=== PATIENT | male | born 1950 | race Caucasian/White ===

== ENCOUNTER 2022-08-05 08:08 | Day surgery (SDC) | payer MEDICARE, BC, SELFPAY ==
[2022-08-05] MEDS: LACTATED RINGERS 1000 ML 1,000 ML 100 ML IV ×2 (07:05→13:07)
[2022-08-05 08:32] VITALS: BMI 33.3
[2022-08-05 08:57] VITALS: BP 105/71; PULSE 63; RESP 16; TEMP 36.7; O2SAT 99
[2022-08-05] MEDS: SODIUM CHLORIDE 0.9 % (FLUSH) 10 ML SYRINGE IVF (09:11)
--- NOTE | 2022-08-05 09:30 | CRLHL7_ITS ---
For Patients: As a result of the Cures Act, medical imaging exams and procedure reports are released immediately into your electronic medical record. You may view this report before your referring provider. If you have questions, please contact your health care provider. Indication: RIGHT 1ST MPJ FUSION ,HAMMERTOE REPAIR 2ND Technique: Two fluoroscopic images of the right forefoot. Fluoroscopic time 16.8 seconds. IMPRESSION: Fluoroscopic guidance for fusion across the 1st MTP joint and hammertoe correction of the 2nd toe. Dictated by James Nicolas MD @ 08/05/2022 12:30:28 PM (Electronically Signed)
[2022-08-05] MEDS: CEFAZOLIN 2 GM INJ IVP (10:13)
[2022-08-05] MEDS: BUPIVACAINE 0.5% 30 ML INJECTION (10:20)
[2022-08-05 12:22] VITALS: BP 115/58; PULSE 64; RESP 16; TEMP 36.2; O2SAT 98
--- NOTE | 2022-08-05 12:24 | W.ANESCHARGE ---
Anesthesia Charges Start Date/Time Anesthesia Start Date: 08/05/22 Anesthesia Start Time: 10:10 Stop Date/Time Anesthesia Stop Date: 08/05/22 Anesthesia Stop Time: 12:25 Summary Emergency: No Extremes of Age: Over 70-CPT 06874
--- NOTE | 2022-08-05 12:27 | W.ANESCHARGE ---
Anesthesia Charges Start Date/Time Anesthesia Start Date: 08/05/22 Anesthesia Start Time: 10:10 Stop Date/Time Anesthesia Stop Date: 08/05/22 Anesthesia Stop Time: 12:25 Summary Emergency: No Extremes of Age: Over 69-CPT 43915
[2022-08-05 12:30] VITALS: BP 100/80; PULSE 65; RESP 16; O2SAT 98
[2022-08-05 12:45] VITALS: BP 107/53; PULSE 63; RESP 16; O2SAT 97
[2022-08-05 13:00] VITALS: BP 109/62; PULSE 67; RESP 16; O2SAT 97
[2022-08-05 13:15] VITALS: BP 102/60; PULSE 66; RESP 16; O2SAT 94
--- NOTE | 2022-08-05 14:47 | P.GSOP_ITS ---
Operative Note Date of procedure: 08/05/22 Pre-op diagnosis: 1. Hallux valgus with bunion right foot 2. Hammertoe 2nd digit right foot Post-op diagnosis: 1. Hallux valgus with bunion right foot 2. Hammertoe 2nd digit right foot Type of Procedure: 1. First MPJ fusion right foot 2. Second digit hammertoe repair with FDL transfer right 3. Capsulotomy 2nd MPJ right Indications: Patient was seen in clinic for ongoing bunion and hammertoe issues patient is high risk for potential breakdown 2nd hammertoe due to diabetes. He has not responded to nonsurgical care and he is ready to pursue surgery. I reviewed the procedure, recovery, expectations and potential complications. This includes but is not limited to: Poor wound healing, infection, under correction, over correction, hardware failure, nerve injury, nonunion, malunion, delayed union, potential need for future surgery, deep venous thrombosis, pulmonary embolism and possible . All questions answered. Written consent obtained. Procedure Description: Procedures: 1. First MPJ fusion right foot 2. Second digit hammertoe repair with FDL transfer right 3. Capsulotomy 2nd MPJ right After discussing the risks and benefits of the procedure, the patient signed informed consent.? The operative site was marked and the patient was brought to the operating room and placed on the operating table in supine position.? Care was taken to pad the patient's pressure points.?? The patient was then given sedation by anesthesia. I injected 30 mL of 0.5% Marcaine plain into the right foot.?? The operative site was then prepped and draped in the usual sterile fashion.? A time-out was then performed. The right foot was exsanguinated and the ankle tourniquet inflated to 250 mm Hg. Dorsal incision made over the 1st metatarsophalangeal joint. The incision was carried down through skin subcutaneous tissues. Capsular incision was made in the capsular tissue reflected away from the 1st metatarsal head and proximal phalangeal base. Guide pin placed the 1st metatarsal head and a 20 mm Reamer used to remove the cartilage and subchondral bone. Rongeur was used to clean up the surrounding bony overhang. Guide pin was removed placed in the base of the proximal phalanx. The corresponding 20 mm Reamer was used to remove the cartilage and subchondral bone. Wound was irrigated normal sterile saline. Opposing fusion surfaces were then fenestrated with a K-wire. Simulated weight- bearing was performed and the great toe positioned appropriately and then temporarily fixated with a K-wire. C-arm confirmed position. Guidepin was placed from distal medial to proximal lateral across the fusion site. 3.0 mm cannulated headless screw was inserted using standard technique. Excellent compression across the fusion site. A dorsally based metatarsal fusion plate was applied. 3.0 mm locking screws x3 were placed distal and 3.0 mm locking s crews x2 were placed proximal. Additional 3.0 mm nonlocking screw was placed proximal. A rotary bur was used to remodel the 1st metatarsal head and proximal phalanx base on the medial aspect. Wound was thoroughly irrigated with sterile saline. Capsule was repaired with 3-0 Vicryl. Subcutaneous tissues reapproximated with 4-0 Monocryl. Skin closed with 4-0 Prolene. Linear incision was made over the right 2nd digit distal interphalangeal joint and proximal interphalangeal joint the 2nd toe with incision extending to the MPJ. At the level of the MPJ the extensor tendon and joint capsule released. The toe position improved somewhat but not entirely and still had elevation of the proximal phalanx. Transverse incisions were made over the PIPJ and DIPJ with the extensor tendon reflected proximally. Mediolateral collateral ligaments released. Using a sagittal saw the head of the proximal phalanx and middle phalanx were resected and the base of the middle phalanx and distal phalanx were resected. At the PIPJ level the flexor digitorum brevis tendon slips were protected and the flexor hallucis longus tendon identified. He was released as far distal as possible and then split into 2 equal halves and each clamped with hemostat and laid 1 medial 1 lateral. A guide pin was placed in the base of the middle phalanx driven through the middle phalanx and then through the distal phalanx. It was then retrogradely drilled into the proximal phalanx. Length was obtained. Small stab incision made the distal toe. 3.0 mm cannulated headless screw was then inserted using standard technique. Excellent compression across both the DIPJ and PIPJ fusion site. Excellent position of the screw. The FDL tendon strips were then brought dorsal and twisted around 1 another. We tensioned the tendon to pull the toe into appropriate alignment and then sutured the toes to portion of the 2 tendons together with 4-0 FiberWire. The repair held nicely. The extensor tendon at the PIPJ and DIPJ fusion sites was repaired with 4-0 Vicryl. Wound was thoroughly irrigated normal sterile saline. Subcutaneous tissues reapproximated 4-0 Monocryl and skin closed with 4-0 Prolene.? Sterile dressings were then applied. Tourniquet was released normal capillary fill time returned to all digits. ? The patient was then woken and transported to the recovery area in stable condition. The patient tolerated the procedure well. He is given both written and verbal postoperative instructions. He is weight-bearing to the heel in a Cam boot with crutch assistance. He is given oxycodone for pain. He will follow up in clinic in 2 days. He will start aspirin therapy tomorrow Findings: Complications: None apparent Implants: Arthrex 1st MPJ fusion plate 6 hole x1, 3.0 mm locking screws x5, 3.0 mm nonlocking screw x1, 3.0 mm headless screw x2. Anesthesia: MAC and local Surgeon: Deo Garcia DPM Estimated blood loss (mL): 10 Condition: stable Disposition: same day
== END 2022-08-05 13:40 | disposition home or self-care (01) ==
PROVIDERS: PCP Family Medicine; Visit Provider Podiatrist
PROC: (CPT 28740; principal; 2022-08-05 09:30)
PROC: (CPT 28285; 2022-08-05 09:30)
DX: M21.611 Bunion of right foot (principal); M20.11 Hallux valgus (acquired), right foot; M20.41 Other hammer toe(s) (acquired), right foot
CPT/HCPCS: 28750; 28285; 28308; 01480; 73620; 82962; 97116; 97161; 99100; A4580; C1713; J0690; J2250; J2370; J2704; J3010; J3490; J7120

== ENCOUNTER 2024-11-10 12:52 | Emergency (ER) | payer MEDICARE, SELFPAY ==
[2024-11-10 13:07] VITALS: BP 163/74; PULSE 57; RESP 18; TEMP 36.7; O2SAT 97
--- NOTE | 2024-11-10 13:25 | ED_ITS ---
HPI - General Adult General Chief complaint: Ear/Nose/Throat Problem Stated complaint: ear surgery on Friday - Triage sent here Time Seen by Provider: 11/10/24 12:56 History of Present Illness HPI narrative: [age] year white male several-day postop cochlear implant on the left. Alma sanchez wears a hearing aid on his right. Had the surgery done elsewhere. He called the triage nurse and they asked retic him to come to the ER as he has been nauseated had some dizziness. Reported to have a headache as well but that he denies that to me now. He is very hard of hearing. His explains most of his history. He denies any chest pain, breathing problem, neurologic complaints, fever. He has been taking 2 doses of dexamethasone and also started on Keflex postoperatively, he also was given hydrocodone but has not started that. Took no meds today as he was concerned about his situation. He feels he is able to walk without difficulty, he does not feel too dizzy right now. Has not had ability to take much for fluid or food just due to not feeling good. Related Data Home Medications ?Medication ?Instructions ?Recorded ?Confirmed aspirin 81 mg tablet,delayed 81 mg PO DAILY 08/01/22 08/05/22 release atorvastatin 40 mg tablet 40 mg PO QHS 08/01/22 08/05/22 chlorthalidone 25 mg tablet 25 mg PO DAILY 08/01/22 08/05/22 gabapentin 300 mg capsule 300 mg PO QHS 08/01/22 08/05/22 glimepiride 4 mg tablet (Amaryl) 8 mg PO DAILY 08/01/22 08/05/22 lisinopril 20 mg tablet 20 mg PO DAILY 08/01/22 08/05/22 metformin 1,000 mg tablet 1,000 mg PO BIDWMEAL 08/01/22 08/05/22 metoprolol tartrate 25 mg tablet 25 mg PO BID 08/01/22 08/05/22 nitroglycerin 0.4 mg sublingual 0.4 mg sublingual Q5M PRN chest 08/01/22 08/05/22 tablet (Nitrostat) pain omega 8-vlm-cst-fish oil 1,000 mg 1 cap PO DAILY 08/01/22 08/05/22 (120 mg-180 mg) capsule (Fish Oil) Allergies Allergy/AdvReac Type Severity Reaction Status Date / Time No Known Drug Allergies Allergy Verified 11/10/24 13:10 Review of Systems Status of ROS: Reports: 6 or more systems reviewed and unremarkable except as noted in History and below [facility] Medical History Controlled diabetes mellitus with hyperglycemia, without long-term current use of insulin ?E11.65 - Type 2 diabetes mellitus with hyperglycemia (ICD-10) Nuclear senile cataract of both eyes ?H25.13 - Age-related nuclear cataract, bilateral (ICD-10) Hyperopia of both eyes ?H52.03 - Hypermetropia, bilateral (ICD-10) Blepharitis of both eyes ?H01.003 - Unspecified blepharitis right eye, unspecified eyelid (ICD-10) ?H01.006 - Unspecified blepharitis left eye, unspecified eyelid (ICD-10) Other intervertebral disc displacement, lumbar region ?M51.26 - Other intervertebral disc displacement, lumbar region (ICD-10) Tinnitus, unspecified ear ?H93.19 - Tinnitus, unspecified ear (ICD-10) Sensorineural hearing loss, bilateral ?H90.3 - Sensorineural hearing loss, bilateral (ICD-10) Benign neoplasm of colon, unspecified ?D12.6 - Benign neoplasm of colon, unspecified (ICD-10) Essential (primary) hypertension ?I10 - Essential (primary) hypertension (ICD-10) Acquired hyperlipoproteinemia ?E78.5 - Hyperlipidemia, unspecified (ICD-10) Type 2 diabetes mellitus without complications ?E11.9 - Type 2 diabetes mellitus without complications (ICD-10) Surgical History H/O coronary artery bypass surgery ?Z95.1 - Presence of aortocoronary bypass graft (ICD-10) H/O aortic valve replacement ?Z95.2 - Presence of prosthetic heart valve (ICD-10) Social History Smoking Status: Never smoker How often do you have a drink containing alcohol: never How often do you have six or more drinks on one occasion: Never AUDIT-C Alcohol total score: 0 Non-prescribed substance use: denies use Caffeine: No service: No Exam Narrative: Exam Narrative: Objective: Patient's vital signs look unremarkable other than slightly elevated blood pressure He is alert orient x3, no distress, negative nystagmus, his postoperative wound looks like it is healing and noninfected. His extraocular movements are intact Neurologic in upper lower extremities unremarkable pulse regular heart rhythm regular heart murmur. Const: Vital Signs, click to edit/add: Vital Signs - 24 hr 11/10/24 13:07 Temperature 98.1 F Pulse Rate [Pulse Oximeter] 57 L Respiratory Rate 18 Blood Pressure [Ri ght Upper Arm] 163/74 H Pulse Oximetry 97 Oxygen Delivery Me thod Room Air Course Vital Signs Vital signs: Initial Vital Signs Temperature 98.1 F 11/10/24 13:07 Temperature Source Temporal Artery Scan 11/10/24 13:07 Pulse Rate 57 L 11/10/24 13:07 Respiratory Rate 18 11/10/24 13:07 Blood Pressure 163/74 H 11/10/24 13:07 Blood Pressure Mean 103 11/10/24 13:07 Blood Pressure Position Sitting 11/10/24 13:07 Pulse Oximetry 97 11/10/24 13:07 Oxygen Delivery Method Room Air 11/10/24 13:07 Vital Signs Temperature 98.1 F 11/10/24 13:07 Pulse Rate 57 L 11/10/24 13:07 Respiratory Rate 18 11/10/24 13:07 Blood Pressure 163/74 H 11/10/24 13:07 Pulse Oximetry 97 11/10/24 13:07 Oxygen Delivery Method Room Air 11/10/24 13:07 Temperature 98.1 F 11/10/24 13:07 Pulse Rate 57 L 11/10/24 13:07 Respiratory Rate 18 11/10/24 13:07 Blood Pressure 163/74 H 11/10/24 13:07 Pulse Oximetry 97 11/10/24 13:07 Oxygen Delivery Method Room Air 11/10/24 13:07 Medications Administered Medications: Discontinued Medications Generic Name Dose Route Start Last Admin Trade Name Freq PRN Reason Stop Dose Admin Sodium Chloride 1,000 mls @ 6,000 mls/hr 11/10/24 13:30 11/10/24 13:54 0.9 % Sodium Chloride 1000 Ml IV 11/10/24 13:39 6,000 mls/hr .Q10M DELIA Administration Lorazepam 1 mg 11/10/24 13:42 11/10/24 13:53 Lorazepam 1 Mg Tablet PO 11/10/24 13:43 1 mg ONCE ONE Administration Medical Decision Making MDM Narrative Medical decision making narrative: 74-year-old male's several days status post cochlear implant with some nausea dizziness. At this point think it be reasonable to check some labs on the patient, will give him IV fluid rehydration, some IV Ativan to help perhaps with his dizziness and nausea. Disposition pending lab findings in his clinical status. Addendum 2:43 p.m. patient feels better after fluid in the Ativan. His lab studies look reassuring including a negative troponin. I think he can be discharged home rest light activity, would recommend he continue his Keflex and dexamethasone as prescribed. Update his surgeon in the next couple of days. Follow up as indicated. Lab Data Labs: Lab Results 11/10/24 Range/Units 13:56 WBC 9.61 (4.50-11.00) K/uL RBC 4.73 (4.30-5.90) m/uL Hgb 14.2 (13.5-17.5) gm/dL Hct 41.2 (37.0-53.0) % MCV 87 (80-100) fL MCH 30 (26-34) pg MCHC 35 (32-36) gm/dL RDW Coeff of Alicia 12.4 (11.5-15.5) % Plt Count 157 (140-440) K/uL Neut % (Auto) 71.4 (42.0-72.0) % Lymph % (Auto) 21.6 (20-44) % Titus % (Auto) 6.0 (0.0-11.0) % Eos % (Auto) 0.7 (0.0-7.0) % Baso % (Auto) 0.2 (0.0-3.0) % Neut # (Auto) 6.85 (1.7-7.0) K/uL Lymph # (Auto) 2.08 (0.90-2.90) K/uL Titus # (Auto) 0.60 (0.00-0.90) K/UL Eos # (Auto) 0.07 (0.00-0.50) K/uL Baso # (Auto) 0.02 (0.00-0.30) K/uL Abs Immat Gran (auto) 0.01 (0.00-0.30) K/uL Imm/Tot Granulo (auto) 0.1 % Sodium 135 (135-149) mmol/L Potassium 4.1 (3.6-5.1) mmol/L Chloride 100 (96-114) mmol/L Carbon Dioxide 21 (20-32) mmol/L Anion Gap 14 (7-15) mEq/L BUN 31 H (7-30) mg/dL Creatinine 1.4 (0.5-1.5) mg/dL Estimated GFR 52 ml/min Glucose 196 H (60-115) mg/dL Calcium 9.6 (8.4-10.6) mg/dL POC Troponin I 0.00 L (0.01-0.04) ng/ml Discharge Plan Discharge Clinical Impression: Dizziness, Nausea, History of cochlear implant Patient Disposition: Home w/ Parent or Adult Condition: Improved Additional Instructions: Light activity, continue home medicines, recheck as needed. Activity Level: Light activity Discharge Diet: Regular Prescriptions: No Action aspirin 81 mg tablet,delayed release (DR/EC) 81 mg PO DAILY atorvastatin 40 mg tablet 40 mg PO QHS chlorthalidone 25 mg tablet 25 mg PO DAILY omega 4-orf-wmd-fish oil [Fish Oil] 1,000 mg (120 mg-180 mg) capsule 1 cap PO DAILY gabapentin 300 mg capsule 300 mg PO QHS glimepiride [Amaryl] 4 mg tablet 8 mg PO DAILY lisinopril 20 mg tablet 20 mg PO DAILY metformin 1,000 mg tablet 1,000 mg PO BIDWMEAL metoprolol tartrate 25 mg tablet 25 mg PO BID nitroglycerin [Nitrostat] 0.4 mg tablet, sublingual 0.4 mg sublingual Q5M PRN (Reason: chest pain) Rx Instructions: do not exceed 3 doses per episode Follow Up/Referrals: Terry Corbett MD [Primary Care Provider] - Stand Alone Forms: [employer] Info Instructions
[2024-11-10] MEDS: LORazepam 1 MG TABLET PO (13:53)
[2024-11-10] MEDS: 0.9 % SODIUM CHLORIDE 1000 ml 1,000 ML 6000 ML IV (13:54)
[2024-11-10 14:07] LABS: Basophils Absolute Auto 0.02 K/uL (0.00-0.30); Basophils Percent Auto 0.2 % (0.0-3.0); Eosinophils Absolute Auto 0.07 K/uL (0.00-0.50); Eosinophils Percent Auto 0.7 % (0.0-7.0); Hematocrit 41.2 % (37.0-53.0); Hemoglobin* 14.2 gm/dL (13.5-17.5); Immature Granulocytes Abs Auto 0.01 K/uL (0.00-0.30); Immature Granulocytes Pct Auto 0.1 %; Lymphocytes Absolute Auto 2.08 K/uL (0.90-2.90); Lymphocytes Percent Auto 21.6 % (20-44); Mean Corpuscular HGB Conc 35 gm/dL (32-36); Mean Corpuscular Hemoglobin 30 pg (26-34); Mean Corpuscular Volume 87 fL (80-100); Neutrophils Absolute Auto 6.85 K/uL (1.7-7.0); Neutrophils Percent Auto 71.4 % (42.0-72.0); Platelet Count* 157 K/uL (140-440); RDW Coefficient of Variation % 12.4 % (11.5-15.5); Red Blood Count 4.73 m/uL (4.30-5.90); White Blood Count* 9.61 K/uL (4.50-11.00)
[2024-11-10 14:25] LABS: Chloride* 100 mmol/L (96-114); Potassium* 4.1 mmol/L (3.6-5.1); Sodium* 135 mmol/L (135-149)
[2024-11-10 14:28] LABS: Anion Gap 14 mEq/L (7-15); Blood Urea Nitrogen* 31 mg/dL (7-30); Calcium* 9.6 mg/dL (8.4-10.6); Carbon Dioxide* 21 mmol/L (20-32); Creatinine* 1.4 mg/dL (0.5-1.5); Estimated Glomerular Filt Rate 52 ml/min; Glucose* 196 mg/dL (60-115)
[2024-11-10 14:32] LABS: Slide Review Reflex No
== END 2024-11-10 14:54 | disposition home or self-care (01) ==
PROVIDERS: Emergency Provider Family Medicine; PCP Family Medicine
DX: R42 Dizziness and giddiness (principal); R11.0 Nausea
CPT/HCPCS: 36415; 80048; 84484; 85025; 99283; 99285; A9270; J7030

== ENCOUNTER 2024-11-15 20:33 | Emergency (ER) | payer MEDICARE, BC, SELFPAY ==
--- OUTSIDE RECORDS SUMMARY | 2024-11-15 20:36 | XMS_ITS | Clinical Summary ---
Author Organization [employer] [facility] Address [address] [place] [address] Care Team Providers Care Vp Publisher Development Name Role Phone Terry Corbett MD Primary Care Provider + Deo Garcia DPM Unavailable Mary Jane Valentino Unavailable [phone] Allergies No known active allergies Medications FISH OIL 1,000 MG CAP 1 tablet daily 0 09/05 01/05 008 Active aspirin (ECOTRIN) 81 mg enteric coated tablet Take 1 tablet by mouth once daily with a meal. 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 1 Each 023 Active pen needle (BD Insulin Pen Needle UF) 31 gauge x 5/16 (disposable insulin pen needle)Indications:Type 2 diabetes mellitus with hyperglycemia, without long-term current use of insulin (HC) FOR ADMINISTERING INSULIN AT HOME 100 Each 3 024 Active insulin glargine, U-100, (Lantus Solostar U-100 Insulin) 100 unit/mL (3 mL) penIndications:Type 2 diabetes mellitus without complication, with long-term current use of insulin (HC) Inject 24 units subcutaneous before bedtime. 60 mL 3 024 Active gabapentin (NEURONTIN) 300 mg capsuleIndications:Lumb ar disc herniation with radiculopathy TAKE 1 CAPSULE BY MOUTH EVERY DAY AT BEDTIME FOR BACK PAIN 90 Capsule 3 024 Active metoprolol tartrate (LOPRESSOR) 25 mg tabletIndications:Coron vahid artery disease, unspecified vessel or lesion type, unspecified whether angina present, unspecified whether [place] or transplanted heart Take 1 Tablet (25 mg) by mouth two times daily. 180 Tablet 3 024 Active atorvastatin (LIPITOR) 40 mg tabletIndications:Pure hypercholesterolemia Take 1 Tablet (40 mg) by mouth at bedtime. 90 Tablet 3 024 Active nitroglycerin (NITROSTAT) 0.4 mg sublingual tabletIndications:S/P CABG x [address] Place 1 Tablet (0.4 mg) under the tongue every 5 minutes if needed for Chest Pain. 25 Tablet 4 024 Active metFORMIN (GLUCOPHAGE) 1,000 mg tabletIndications:Diabe marleni mellitus without complication (HC) TAKE 1 TABLET BY MOUTH TWICE DAILY WITH MEALS. 180 Tablet 2 Active Dexcom G6 Transmitter for continuous blood glucose monitor (CGM)Indications:Type 2 diabetes mellitus with hyperglycemia, without long-term current use of insulin (HC) To be used to read blood sugars, change every 90 days. 1 Each 025 Active Dexcom G6 Sensor for continuous blood glucose monitor (CGM)Indications:Type 2 diabetes mellitus with hyperglycemia, without long-term current use of insulin (HC) To be used to read blood sugars, change every 10 days. 9 Each 025 Active glimepiride 4 mg tabletIndications:Type 2 diabetes mellitus without complication, without long-term current use of insulin (HC) TAKE 2 TABLETS(8 MG) BY MOUTH EVERY DAY WITH A MEAL 180 Tablet 3 025 Active chlorthalidone 25 mg tabletIndications:Hyper tension TAKE 1 TABLET(25 MG) BY MOUTH DAILY 90 Tablet 3 025 Active valsartan 160 mg tabletIndications:HTN (hypertension) Take 1 Tablet (160 mg) by mouth once daily. 90 Tablet 3 025 Active HYDROcodone-acetaminoph en (5-325 mg/tablet)Indications:S ensorineural hearing loss, bilateral Take 1 Tablet by mouth 3 times daily if needed for Pain. Max acetaminophen dose: 4000 mg in 24 hrs. 10 Tablet 11/09/19 25 5:21 PM CDT 025 Active cephalexin 500 mg capsuleIndications:Sens orineural hearing loss, bilateral Take 1 Capsule (500 mg) by mouth four times daily for 10 days. 40 Capsule 11/09/19 25 5:21 PM CDT 025 2024 Active acetaminophen 325 mg tabletIndications:Senso rineural hearing loss, bilateral Take 2 Tablets (650 mg) by mouth four times daily. Max 4,000 mg total acetaminophen daily. 100 Tablet 11/09/19 25 5:21 PM CDT 025 Active ibuprofen 200 mg tabletIndications:Senso rineural hearing loss, bilateral Take 2 Tablets (400 mg) by mouth four times daily with meals and at bedtime. 100 Tablet 11/09/19 25 5:21 PM CDT 025 Active dexAMETHasone 4 mg tabletIndications:Senso rineural hearing loss, bilateral Take 1 tablet two days after surgery (Friday after surgery on Friday, or Friday after surgery on ), then take another tablet four days after surgery, then take another tablet six days after surgery. 3 Tablet 11/09/19 25 5:21 PM CDT 025 Active acetaminophen (TYLENOL ORAL) Take by mouth. Activ e IBUPROFEN ORAL Take by mouth. Active Active Problems Problem Noted Date Diagnosed Date Type 2 diabetes mellitus wit h diabetic cataract, with long-term current use of insulin 09/23/2023 Short-term memory loss 10/09/2022 Type 2 diabetes mellitus wit h hyperglycemia, without long-term current use of insulin 08/24/2019 S/P AVR (aortic valve replacement) 07/11/2016 Overview (07/11/2016): 07/11/16 s/p Aortic Valve replacement with a 21 mm Pani[place] Magna valve S/P CABG x 1 07/11/2016 Overview (07/11/2016): 07/11/16 s/p Coronary artery bypass graft X 1 with a graft from the left internal mammary artery to the left anterior descending Blepharitis of both eyes 09/05/2015 Hyperopia of both eyes with astigmatism and pres byopia 09/05/2015 Nuclear senile cataract of both eyes 09/05/2015 Lumbar disc herniation 06/08/2014 Overview (05/02/2016): ~ January 2016:L5-S1 TF epidural steroid injection by Dr. Tamez. ~ February,: was done and lidocaine effect was ok, then approximately 1 week of good, 75%, relief then benefit started to wear off. ~ April 2016: Left L2-L3 Interlaminar epidural steroid injection by Dr. Tamez. Sensorineural hearing loss, bilateral 07/23/2011 Subjective tinnitus 07/23/2011 Benign neoplasm of colon 09/22/2009 Overview (09/12/2021): Colonoscopy 09/2009 TA, repeat in 5 years Colonoscopy 09/2021 inflammatory polyp, repeat in 7 years Hypertension 08/23/2009 Type II diabetes mellitus 08/06/2007 Hyperlipidemia 08/06/2007 Resolved Problems Problem Noted Date Diagnosed Date Resolved Date Pseudopolyposis of colon wit hout complication, unspecified part of colon 09/10/2022 10/26/2024 ELINA 11/23/2003 AHI-35 12/22/2015 016 Aortic stenosis 10/19/2014 01/22/2017 Overview (06/24/2016): -Echocardiogram 06/07/2016 Severe aortic stenosis, mean gradient 40 mm Hg, maximum gradient 67 mm Hg, JURGEN 0.79 cm2 EF 60-65% [place]' lung 08/06/2007 01/22/2017 Overview (06/24/2016): 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 Sleep apnea 08/06/2007 01/22/2017 Encounters Date Type Department Care Team Description 11/15/2024 Travel 11/10/2024 Nurse Triage [facility] [address] [place] [address] Vasu Herrera MD Post-op; Headache 11/05/2024 10:14 AM CDT Anesthesia Event [address] [place] [address] Oscar Motley MD Perese, Deniz A, MD 11/05/2024 9:26 AM CDT - 11/05/2024 12:21 PM CDT Surgery [address] [address] Vasu Herrera MD LEFT INSERTION COCHLEAR IMPLANT 11/05/2024 7:42 AM CDT - 11/05/2024 2:32 PM CDT Hospital Encounter [address] [address] Vasu Herrera MD Sensorineural hearing loss, bilateral (Primary Dx) Discharge Disposition: Home Self Care 11/03/2024 Travel 10/26/2024 10:00 AM CDT Office Visit [facility] [address] [place] [address] Terry Corbett MD Preoperative Exam (11/05/24, cochlear implant, Dr. Herrera, [place]) 10/26/2024 Travel 10/24/2024 Travel 10/23/2024 Travel 10/20/2024 11:30 AM CDT Office Visit [facility] [address] [place] [address] Senia George AuD Hearing Aid (CI device selection) 10/20/2024 Travel 09/21/2024 10:30 AM CDT Office Visit [facility] [address] [place] [address] James Cortez MD Follow Up (Follow up yearly visit- Echo 09/14/24 ) 09/21/2024 Travel 09/19/2024 Refill [facility] [address] [place] [address] Terry Corbett MD Refill Request (Lisinopril, Glimepiride, Chlorthalidone) 09/14/2024 11:00 AM CDT Ancillary Procedure [facility] [address] [place] [address] 09/14/2024 10:45 AM CDT Orders Only [facility] [address] [place] [address] Lab, [facility] 09/14/2024 Travel 09/10/2024 Travel 08/31/2024 Telephone [place] [id number] [place] [address] James Cortez MD Lab (Lab orders needed) from Last 3 Months Immunizations Immunization Administration Dates Next Due Amb Influenza, Inactivated A IIV4 (Age 65+ Years) Preserv Free 04/06/2020 COVID-19 vaccine (Moderna 50mcg/0.5mL) 12YO+ BIVALENT PF, MDV 04/16/2022 COVID-19 vaccine (Pfizer-Bio NTech 30mcg/0.3mL) PF, MDV 09/26/2020,09/05/2020 Influenza A (H1N1), Inactivated 08/30/2009 Influenza A (H1N1), Inactiva everett (Age >=3 Years) 08/30/2009 Influenza Virus, Unspecified 07/14/2023,04/16/20 22 Influenza, High-dose Inactivated 05/18/2024,12/01/2016,07/12/2014 Influenza, High-dose Quadriv alent Inactivated 03/12/2021 Influenza, IIV3 (Age 6-35 mos) 03/21/2010,2009 Influenza, IIV3 (Age >=3 years) 04/07/20 13,07/11/2011,03/21/2010,2009 Influenza, Inactivated AIIV4 (Age 65+ Years) Preserv Free 07/14/2023,04/16/2022 Influenza, Inactivated IIV3 (Age 65+ Years) Preserv Free 08/24/2019,06/02/2018 Pneumococcal Conj 20-valent (Prevnar 20) 05/09/2022 Pneumococcal Poly,23-Valent (Pneumovax) 08/30/2009 Pneumococcal conj 13-Valent (Prevnar 13) 06/12/2016 Td (Age >=7 Years) 11/18/2003 Tdap 08/30/2009 Zoster (Shingrix-RZV, recombinant) 05/24/2021, Family History Medical History Relation Name Comments Heart attack Father of presume d [place] at age 60 Dementia Mother Rheumatic fever Mother with associa everett heart disease Genetic Other Dad and Mom- he art disease Blood Disease Sister DVT Relation Name Status Comments Father Mother Other Sister Social History Tobacco Use Types Packs/Day Years Used Date Smoking Tobacco: Never Smokeless Tobacco: Never Tobacco Cessation:Counseling Given: Yes Alcohol Use Standard Drinks/Week Comments No 0 (1 standard drink = 0.6 oz pur e alcohol) PHQ-2 Answer Date Recorded PHQ-2 TOTAL SCORE 0 12/24/2023 Social Connections Answer Date Recorded Do you often feel lonely or isolated from those around you? 0 12/24/2023 Financial Resource Strain Answer Date R ecorded Difficulty of Paying Living Expenses 3 12/24/2023 Difficulty of Paying Living Expenses Not on file 12/24/2023 Food Insecurity Answer Date Recorded Do you worry your food will run out before you are able to buy more? 1 12/24/2023 Transportation Needs Answer Date Record ed Does lack of transportation keep you from medica l appointments? 1 12/24/2023 Does lack of transportation keep you from work, meetings or getting things that you need? 1 12/24/2023 Housing Stability Answer Date Recorded What is your housing situation today? 1 12/24/2023 Utilities Answer Date Recorded Do you have trouble paying f or utilities (for example, heat, electricity, water, phone)? 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 Not on file Not on file Obstetrics History Last Filed Vital Signs Vital Sign Reading Time Taken Comments Blood Pressure 122/58 11/05/2024 2:10 PM CDT Pulse 72 11/05/2024 2:10 PM CDT Temperature 36.4 C (97.5 F) 11/05/2024 1:20 PM CDT Respiratory Rate 16 11/05/2024 2:10 PM CDT Oxygen Saturation 93% 11/05/2024 2:10 PM CDT Inhaled Oxygen Concentration - - Weight 98 kg (216 lb) 11/05/2024 7:59 AM CDT Height 172.7 cm (5' 8) 11/05/2024 7:59 AM CDT Body Mass Index 32.84 11/05/2024 7:59 AM CDT Plan of Treatment Upcoming Encounters Date Type Department Care Team (Late st Contact Info) Description 11/16/2024 10:00 AM CDT Office Visit [facility] [id number] [place] [phone] Jodie Scales PA [address] [place] [address] 12/03/2024 10:00 AM CDT Office Visit [facility] [address] [place] [address] [phone] Linda Haines, AuD [address] [place] [address] 12/03/2024 10:30 AM CDT Office Visit [facility] [address] [place] [phone] Linda Haines, AuD [address] [place] [address] 12/23/2024 9:35 AM CDT Office Visit [facility] [address] [place] [address] VoTerry gustafson MD [address] [place] [address] Health Maintenance Due Date Last Done Comments Hepatitis C screening for ag e 18-79 1967 Tetanus booster 08/30/2019 08/30/2009, 11/18/2003 RSV vaccine for adults or (1 - 1-dose 75+ series) 01/19/2024 COVID-19 vaccine series (2023- season) 2024 05/18/2024, 07/14/2023, 04/16/2022, Additional history exists Depression screening for age 12+ 12/23/2024 12/24/2023, 10/09/2022, 11/19/2021, Additional history exists Medicare Wellness for age 65+ 12/24/2024 12/24/2023, 10/09/2022 BMI (ht and wt on same day) for age 18+ 10/26/2025 10/26/2024, 06/24/2024, 03/25/2024, Additional history exists Colonoscopy through age 75 09/11/202809/11, 09/11/2021, 09/11/2021, Additional history exists Lipids for age 45-75 09/14/2029 09/14/2024, 09/23/2023, 05/09/2022, Additional history exists Tdap Completed 08/30/2009 Zoster (shingles) series for age 50+ Completed 05/24/2021, 03/12/2021 Pneumococcal series for age 50+ Completed 05/09/2022, 06/12/2016, 08/30/2009 Influenza Vaccine Completed 05/18/2024, , 07/14/2023, Additional history exists Medical Devices Implanted Type Area Attendant Coin Operated Laundry Device Identifier Shelf Expiration Date Model / Serial / Lot Anw Hh [id number] Implanted:Qty: 1 on 07/11/2016 by Jaguar Hendrix MD at [facility] Explanted:at [facility] (Quantity not on file) N/A: Aortic Valve [employer]One 11/01/2019 [id number] / [id number] / Elctrd Cochlear Nucleus Plus Profile W/Slim Modiolar [id number] - [id number] Implanted:Qty: 1 on 11/05/2024 by Vasu Herrera MD at Left: [employer] 06/18/2026 [id number] / [id number] / Procedures Procedure Name Priority Date/Time Associated Diagnosis Comments GLUCOSE METER Timed 11/05/2024 12:36 PM CDT SUPRAGLOTTIC-LMA Routine 11/05/2024 10:38 AM CDT INSERTION COCHLEAR IMPLANT Tier 4 11/05/2024 9:54 AM CDT Sensorineural hearing loss (SNHL) of both ears Case Notes 150 MIN TFCochlear AmericasMICROSCOPE10/21: Order rec'd from office and submitted for quote. [facility]10/22: Externals ordered to be delivered to clinic. [facility] Special Needs HT 5'8 WT 97.8kg, BMI 32HOH, DM with CGM, GLUCOSE METER Timed 11/05/2024 8:02 AM CDT SCAN-CARDIAC STRIP 11/05/2024 12:00 AM CDT CBC WITH AUTO DIFFERENTIAL Routine 10/26/2024 11:11 AM CDT Pre-op exam BASIC METABOLIC PANEL Routine 10/26/2024 11:11 AM CDT Hypertension ECHO TTE COMPLETE W CONTRAST Routine 09/14/2024 11:44 AM CDT S/P AVR (aortic valve replacement) LIPID PANEL W REFLEX MEASURED LDL Routine 09/14/2024 10:40 AM CDT Hyperlipidemia, unspecified hyperlipidemia type BASIC METABOLIC PANEL Routine 09/14/2024 10:40 AM CDT Hypertension COLONOSCOPY SCREENING Routine 09/11/2021 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 GLUCOSE METER 185(H) 65 - 100 mg/dL 11/05/2024 12:41 PM CDT [facility] Blood BLOOD SPECIMEN / Unknown 11/05/2024 12:36 PM CDT 11/05/2024 12:41 PM CDT us Vasu Herrera MD CHEMISTRY Final Resul t [facility] [place] [address] [id number] [address] [place] [address] * HCHG MASK PR5 (11/05/2024 10:38 AM CDT) Narrative James Hood LINE HELPER - 11/05/2024 10:38 AM CDT James Hood CRNA 11/05/2024 10:39 AM Procedure: Supraglottic Patient location during procedure: OR Supraglottic Airway Properties Mask Ventilation: not attempted Type: unique Tube Size: 5 Insertion Attempts: 1 Placement Verification: auscultation and CO2 detection Assessment Assessment: atraumatic and dentition unchanged us Oscar Motley MD ANESTHESIA PX NOTE ORDERA BLES Final Result * SCAN-CARDIAC STRIP (11/05/2024 12:00 AM CDT) Narrative 11/05/2024 12:00 AM CDT Ordered by an unspecified provider. us Other Clinical Staff OTHER Final Resul t * CBC AND DIFFERENTIAL (10/26/2024 11:11 AM CDT) WHITE BLOOD CELL COUNT 7.4 3.8 - 10.8 Thousand/u L [facility] RED BLOOD CELL COUNT 4.46 4.20 - 5.80 Million/uL [facility] HEMOGLOBIN 13.4 13.2 - 17.1 g/dL [facility] HEMATOCRIT 40.5 38.5 - 50.0 % [facility] MCV 90.8 80.0 - 100.0 fL [facility] MCH 30.0 27.0 - 33.0 pg [facility] MCHC 33.1 32.0 - 36.0 g/dL [facility] Comment: For adults, a slight decrease in the calculated MCHC value (in the range of 30 to 32 g/dL) is most likely not clinically significant; however, it should be interpreted with caution in correlation with other red cell parameters and the patient's clinical condition. RDW 12.4 11.0 - 15.0 % [facility] PLATELET COUNT 186 140 - 400 Thousand/u L [facility] MPV 12.1 7.5 - 12.5 fL [facility] ABSOLUTE NEUTROPHILS 4,196 1,500 - 7,800 cells/uL [facility] ABSOLUTE LYMPHOCYTES 2,227 850 - 3,900 cells/uL [facility] ABSOLUTE MONOCYTES 540 200 - 950 cells/uL [facility] ABSOLUTE EOSINOPHILS 400 15 - 500 cells/uL [facility] ABSOLUTE BASOPHILS 37 0 - 200 cells/uL [facility] NEUTROPHILS 56.7 % [facility] LYMPHOCYTES 30.1 % [facility] MONOCYTES 7.3 % [facility] EOSINOPHILS 5.4 % [facility] BASOPHILS 0.5 % [facility] Blood BLOOD SPECIMEN / Unknown 10/26/2024 11:11 AM CDT 10/26/2024 11:11 AM CDT Terry Corbett MD HEMATOLOGY Final Re sult [facility] [address] [place] [address], [facility] [address] [place] [address] * (ABNORMAL) BASIC METABOLIC PANEL (10/26/2024 11:11 AM CDT) Only the most recent of2 resultswithin the time period is included. GLUCOSE 215(H) 65 - 99 mg/dL [facility] Comment: Fasting reference interval For someone without known diabetes, a glucose value >125 mg/dL indicates that they may have diabetes and this should be confirmed with a follow-up test. UREA NITROGEN (BUN) 43(H) 7 - 25 mg/dL [facility] CREATININE 2.06(H) 0.70 - 1.28 mg/dL [facility] EGFR 33(L) > OR = 60 mL/min/1.7 3m2 [facility] BUN/CREATININE RATIO 21 6 - 22 (calc) [facility] SODIUM 140 135 - 146 mmol/L [facility] POTASSIUM 5.4(H) 3.5 - 5.3 mmol/L [facility] CHLORIDE 107 98 - 110 mmol/L [facility] CARBON DIOXIDE 28 20 - 32 mmol/L [facility] ELECTROLYTE BALANCE 5(L) 7 - 17 mmol/L (calc) [facility] CALCIUM 9.4 8.6 - 10.3 mg/dL [facility] Blood BLOOD SPECIMEN / Unknown 10/26/2024 11:11 AM CDT 10/26/2024 11:11 AM CDT us Terry Corbett MD CHEMISTRY Final Re sult [facility] [address] [place] [address], [facility] [address] [place] [address] * ECHO TTE COMPLETE W CONTRAST (09/14/2024 11:44 AM CDT) AORTIC VALVE MEAN PG 16 mmHg EJECTION FRACTION 64 % LVEDD 4.0 cm EJECTION FRACTION 60 - 65% Anatomical Region Laterality Modality Ultrasound 09/14/2024 11:1 1 AM CDT Narrative 09/14/2024 12:45 PM CDT ECHOCARDIOGRAM FRANCISCO KAUFMAN : 1950 74 years Study Date: 09/14/2024 11:11:19 AM Gender: M BP: 110/54 mmHg Height: 173.00 cm BSA: 2.11 m Weight: 98.00 kg Tech: [facility] Referring MD: BLACK LUCIA Site: [facility] Reading Location: Mobile-OP Patient Location: Outpatient. Procedure: 2D w/ Contrast, Color Doppler and Spectral Doppler. Indication for study: S/P AVR (aortic valve replacement) Cardiac Rhythm: Regular.Study quality: Fair. Final Impressions: 1. Normal LV size, moderately increased wall thickness, normal global systolic function with an estimated EF of 60 - 65%. 2. Right ventricular cavity size is normal, global systolic RV function is mildly reduced. 3. Severely enlarged left atrium. 4. The aortic valve is a normal functioning 21 mm [employer] Magna, no stenosis and trivial regurgitation. The aortic valve peak velocity is 2.7 m/s, the peak gradient is 29 mmHg, and the mean gradient is 16 mmHg. The aortic valve area is 1.63 cm with a dimensionless index of 0.53. The stroke volume index is 42.2 ml/m . 5. Severe MAC present with calcified leaflets with signficantly reduced motion. The mean gradient only measured 5-6mmHg @ 62 bpm but suspect that mitral stenosis may be underestimated. Recomennd BIRDIE to further evaluate. Trace mitral regurgitation. 6. Echo contrast was administered to enhance visualization of all left ventricular segments. Chamber Sizes and Function Normal left ventricular size, moderately increased wall thickness, normal global systolic function with an estimated EF of 60 - 65%. No resting regional wall motion abnormality visualized. Left atrial size is severely enlarged. Right ventricular cavity size is normal, global systolic RV function is mildly reduced. The right atrium is normal. Right atrial volume index is 17 ml/m . Right atrial area is 12 cm . The pulmonary artery is of normal size and origin. The sinus of Valsalva is normal sized. The ascending aorta is normal sized. Valves, RV Pressures and Diastolic Function The aortic valve is a normal functioning 21 mm [employer] Per[employer] Magna, no stenosis and trivial regurgitation. The mitral valve is sclerotic, trace mitral regurgitation. Severe mitral annular calcification is present. Indeterminate pattern of LV diastolic filling. The tricuspid valve is normal in structure and trace tricuspid regurgitation. The pulmonic valve is normal. No pulmonary regurgitation. Masses, Effusion, Shunts There is no pericardial effusion. The inferior vena cava is normal sized, respiratory size variation greater than 50%. No left to right shunting was detected by limited color flow Doppler interrogation of the interatrial septum. MEASUREMENTS AND CALCULATIONS 2-D Measurements and LV Function: LVID (d) 4.0 cm LV FS% (2D) 27 % LVID (s) 2.9 cm LVOT diameter 2.0 cm IVS (d) 1.6 cm HR 63 bpm LVPW (d) 1.6 cm LA Vol index 54 ml/m2 Ao Sinus 2.6 cm RA Vol index 17 ml/m2 Ao Sinus ULN 4.2 cm * RA area 12 cm Asc Ao 3.6 cm RV Basal Diam 3.6 cm Asc Ao ULN 4.4 cm * LA 5.4 cm * Input BSA outside of range, reported values correspond to BSA = 2.1 Diastology: Mitral Tissue Doppler Pulmonary veins E Peak 1.4 m/s e', Septum 0.04 m/s Pulm s 59.6 cm/s A Peak 1.7 m/s e', Lateral 0.09 m/s Pulm d 35.4 cm/s E/A 0.9 E/e' Average 22.31 Pulm s/d ratio 1.68 DT 354 msec Aortic Valve: Vmax 2.7 m/s JURGEN (V) 1.55 cm VTI 0.55 m JURGEN (I) 1.63 cm LVOT V max 1.3 m/s Max PG 29 mmHg LVOT VTI 0.29 m Mean PG 16 mmHg SV 89 ml Dim Index 0.53 SV index 42 ml/m CO 5.6 l/min CI 2.7 l/min/m Mitral Valve: MVA 2.1 cm MV P 1/2 103 msec MV Mean G 5 mmHg MV VTI 0.57 m Tricuspid Valve and estimated PA pressures: TAPSE 1.3 cm Pulmonic Valve: PV AT 88 msec Contrast documentation: 2 ml diluted Definity, [facility]# [id number] was administered peripherally to enhance visualization of all left ventricular segments. . This study was interpreted by an [facility] accredited facility. Final (Updated) Procedure Note Esdras Zamorano MD - 09/17/2024 ECHOCARDIOGRAM FRANCISCO KAUFMAN : 1950 74 years Study Date: 09/14/2024 11:11:19 AM Gender: M BP: 110/54 mmHg Height: 173.00 cm BSA: 2.11 m Weight: 98.00 kg Tech: [facility] Referring MD: BLACK LUCIA Site: [facility] Reading Location: Mobile-OP Patient Location: Outpatient. Procedure: 2D w/ Contrast, Color Doppler and Spectral Doppler. Indication for study: S/P AVR (aortic valve replacement) Cardiac Rhythm: Regular.Study quality: Fair. Final Impressions: 1. Normal LV size, moderately increased wall thickness, normal globalsystolic function with an estimated EF of 60 - 65%. 2. Right ventricular cavity size is normal, global systolic RV functionis mildly reduced. 3. Severely enlarged left atrium. 4. The aortic valve is a normal functioning 21 mm [place] [employer], no stenosis and trivial regurgitation. The aortic valvepeak velocity is 2.7 m/s, the peak gradient is 29 mmHg, and the meangradient is 16 mmHg. The aortic valve area is 1.63 cm with adimensionless index of 0.53. The stroke volume index is 42.2 ml/m . 5. Severe MAC present with calcified leaflets with signficantly reducedmotion. The mean gradient only measured 5-6mmHg @ 62 bpm but suspect thatmitral stenosis may be underestimated. Recomennd BIRDIE to further evaluate.Trace mitral regurgitation. 6. Echo contrast was administered to enhance visualization of all leftventricular segments. Chamber Sizes and Function Normal left ventricular size, moderately increased wall thickness, normalglobal systolic function with an estimated EF of 60 - 65%. No restingregional wall motion abnormality visualized. Left atrial size is severelyenlarged. Right ventricular cavity size is normal, global systolic RVfunction is mildly reduced. The right atrium is normal. Right atrialvolume index is 17 ml/m . Right atrial area is 12 cm . The pulmonaryartery is of normal size and origin. The sinus of Valsalva is normalsized. The ascending aorta is normal sized. Valves, RV Pressures and Diastolic Function The aortic valve is a normal functioning 21 mm [employer], no stenosis and trivial regurgitation. The mitral valveis sclerotic, trace mitral regurgitation. Severe mitral annularcalcification is present. Indeterminate pattern of LV diastolic filling.The tricuspid valve is normal in structure and trace tricuspidregurgitation. The pulmonic valve is normal. No pulmonary regurgitation. Masses, Effusion, Shunts There is no pericardial effusion. The inferior vena cava is normal sized,respiratory size variation greater than 50%. No left to right shunting wasdetected by limited color flow Doppler interrogation of the interatrialseptum. MEASUREMENTS AND CALCULATIONS 2-D Measurements and LV Function: LVID (d) 4.0 cm LV FS% (2D) 27% LVID (s) 2.9 cm LVOT diameter2.0 cm IVS (d) 1.6 cm HR 63bpm LVPW (d) 1.6 cm LA Vol index 54ml/m2 Ao Sinus 2.6 cm RA Vol index 17ml/m2 Ao Sinus ULN 4.2 cm * RA area 12cm Asc Ao 3.6 cm RV Basal Diam3.6 cm Asc Ao ULN 4.4 cm * LA 5.4 cm * Input BSA outside of range, reported values correspond to BSA = 2.1 Diastology: Mitral Tissue Doppler Pulmonary veins E Peak 1.4 m/s e', Septum 0.04 m/s Pulm s 59.6 cm/s A Peak 1.7 m/s e', Lateral 0.09 m/s Pulm d 35.4 cm/s E/A 0.9 E/e' Average 22.31 Pulm s/d ratio 1.68 DT 354 msec Aortic Valve: Vmax 2.7 m/s JURGEN (V) 1.55 cm VTI 0.55 m JURGEN (I) 1.63 cm LVOT V max 1.3 m/s Max PG 29 mmHg LVOT VTI 0.29 m Mean PG 16 mmHg SV 89 ml Dim Index 0.53 SV index 42 ml/m CO 5.6 l/min CI 2.7 l/min/m Mitral Valve: MVA 2.1 cm MV P 1/2 103 msec MV Mean G 5 mmHg MV VTI 0.57 m Tricuspid Valve and estimated PA pressures: TAPSE 1.3 cm Pulmonic Valve: PV AT 88 msec Contrast documentation: 2 ml diluted Definity, [facility]# [id number] wasadministered peripherally to enhance visualization of all left ventricularsegments. . This study was interpreted by an [facility] accredited facility. Final (Updated) us Black Lucia MD, PhD ECHO ORD Khoi everett Result - Final * (ABNORMAL) LIPID PANEL W REFLEX MEASURED LDL (09/14/2024 10:40 AM CDT) CHOLESTEROL, TOTAL 129 <200 mg/dL [facility] HDL CHOLESTEROL 29(L) > OR = 40 mg/dL [facility] TRIGLYCERIDES 145 <150 mg/dL [facility] LDL-CHOLESTEROL 75 mg/dL (calc) [facility] Comment: Reference range: <100 Desirable range <100 mg/dL for primary prevention; <70 mg/dL for patients with CHD or diabetic patients with > or = 2 CHD risk factors. LDL-C is now calculated using the Naveed-Frausto calculation, which is a validated novel method providing better accuracy than the Friedewald equation in the estimation of LDL-C. Naveed SS et al. RUI. 2013;310(19): 6254-0494 (http://education.[employer]/faq/DJZ737) CHOL/HDLC RATIO 4.4 <5.0 (calc) [facility] NON HDL CHOLESTEROL 100 <130 mg/dL (calc) [facility] Comment: For patients with diabetes plus 1 major ASCVD risk factor, treating to a non-HDL-C goal of <100 mg/dL (LDL-C of <70 mg/dL) is considered a therapeutic option. Blood BLOOD SPECIMEN / Unknown 09/14/2024 10:40 AM CDT 09/14/2024 10:40 AM CDT James Cortez MD CHEMISTRY Final Result [facility] [address] [place] [address], 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) 09/11/2021 9:18 AM CARPET SEWING MACHINE OPERATOR Narrative Transcriptions Naveed Patterson MD - 09/11/2021 10:32 AM CST Patient Name: Francisco Kaufman Procedure Date: 09/11/2021 Gender: Male Date of : 1950 Admit Type: Outpatient Procedure: Colonoscopy Proceduralist: Naveed Patterson MD , Ange Mcneil RN(Nurse) Referring MD: Terry Corbett Indications/Pre-Op Diagnosis: High risk colon cancer surveillance:Personal history of adenoma less than 10 mm in size, Last colonoscopy: September 2009 Medications: Fentanyl 100 micrograms IV, Midazolam 2 mgIV, The level of sedation administered wasmoderate Procedure Description: The patient had risks, benefits and alternatives explained to andgave informed consent. The patient had a stable cardiopulmonary status and judged an adequate candidate for conscious sedation. The [id number] was passed through the anus and advanced tothe cecum, identified by appendiceal orifice and ileocecal valve. The colonoscopy was performed without difficulty. The patient toleratedthe procedure well. The quality of the bowel preparation was good. The ileocecal valve, appendiceal orifice, and rectum were photographed. Complications: No immediate complications. Estimated Blood Loss & Specimen: Estimated blood loss: none. Specimen collected - Yes and sent to Laboratory Findings: The perianal and digital rectal examinations were normal. A 4 mm polyp was found in the sigmoid colon. The polyp was sessile.The polyp was removed with a cold snare. Resection and retrieval were complete. Scattered small-mouthed diverticula were found in the sigmoidcolon. The exam was otherwise without abnormality on direct and retroflexion views. Impressions/Post-Op Diagnosis: - One 4 mm polyp in the sigmoid colon, removed with a cold snare. Resected and retrieved. - Diverticulosis in the sigmoid colon. - The examination was otherwise normal on direct and retroflexionviews. Recommendation: - Patient has a contact number available for emergencies. The signsand symptoms of potential delayed complications were discussed with the patient. Return to normal activities tomorrow. Written discharge instructions were provided to the patient. - Resume previous diet. - Continue present medications. - Await pathology results. - Repeat colonoscopy is recommended for surveillance. The colonoscopy date will be determined after pathology results from today's exambecome available for review. Moderate Sedation: Moderate (conscious) sedation was administered by the endoscopy nurse and supervised by the endoscopist. The following parameters were monitored: oxygen saturation, heart rate, respiratory rate, blood pressure, adequacy of pulmonary ventilation and reponse to care. Please refer to the patient's medical record flowsheets and nursing notes for moderate sedation details. Total physician intraservice time was 26 minutes. Naveed Patterson MD 09/11/2021 10:32:31 AM This report has been signed electronically. Note Initiated On: 09/11/2021 9:18 AM Procedure Code(s): --- Professional --- 27868, Colonoscopy, flexible; with removalof tumor(s), polyp(s), or other lesion(s) bysnare technique Diagnosis Code(s): --- Professional --- Z86.010, Personal history of colonicpolyps K63.5, Polyp of colon K57.30, Diverticulosis of large intestine without perforation or abscess withoutbleeding CPT copyright 2020 [employer]. All rights reserved. The codes documented in this report are preliminary and upon manager urgent care reviewmay be revised to meet current compliance requirements. Scope In: 10:01:15 AM Scope Withdrawal Time 0 hours 8 minutes 44 seconds Scope Out: 10:25:36 AM us Naveed Patterson MD PROCEDURE ORD Final Res ult from Last 3 Months or Most Recently Relevant to Health Maintenance Insurance MEDICARE PB ONLY [facility] MEDICARE PART B HB ONLY MEDICARE PART A HB ONLY Advance Directives * Full Code (Latest Code Status on File) Date Activated Date Inactivated Comments 07/11/2016 11:32 AM 07/17/2016 6:06 PM * Full Code Date Activated Date Inactivated Comments 07/11/2016 6:00 AM 07/11/2016 11:31 AM * Full Code Date Activated Date Inactivated Comments 06/24/2016 9:10 AM 06/24/2016 4:49 PM Care Teams Vp Publisher Development Relationship Specialty Start Date End Date Votel, Terry Leone MD [address] [place] [address] PCP - General 09/17/07 Deo Garcia DPM [address] [place] [address] PODIATRY Podiatry 07/11/11 Mary Jane Valentino AuD [address] [facility] [address] Audiology 12/26/11
[2024-11-15 20:44] VITALS: BP 152/94; PULSE 65; RESP 16; TEMP 36.1; O2SAT 97; BMI 30.3
--- NOTE | 2024-11-15 21:03 | CRLHL7_ITS ---
For Patients: As a result of the Century Cures Act, medical imaging exams and procedure reports are released immediately into your electronic medical record. You may view this report before your referring provider. If you have questions, please contact your health care provider. Indication: Vertigo, history of ear cancer, recent cochlear implant Technique: Noncontrast CT through the head with multiplanar reformats Comparison: None Findings: Portions of the examination are degraded by streak artifact from cochlear implants. Brain: No acute hemorrhage. No acute infarct. No significant mass effect or midline shift. No gross evidence of a mass lesion or cerebral edema. Mild chronic microvascular ischemic disease. Ventricles: No acute abnormality appreciated. Orbits, sinuses, mastoids: Left temporal bone postsurgical changes. Fluid and/or soft tissue noted in the mastoid air cells, middle ear, and surgical cavity. Calvarium and soft tissues: No acute abnormality appreciated. Impression: Portions of the examination are degraded by streak artifact. There are postsurgical changes from reported left cochlear implant placement with fluid and/or soft tissue noted in the mastoid air cells, middle ear, and surgical cavity. This is overall not well evaluated by imaging and if there is concern for acute surgical complication, ENT evaluation would be recommended. Otherwise, allowing for streak artifact, no acute intracranial process is appreciated. Please note that all CT scans at this facility use dose modulation, iterative reconstruction, and/or weight-based dosing when appropriate to reduce radiation dose to as low as reasonably achievable. Dictated by Kem Pierce MD @ 11/15/2024 10:14:29 PM (Electronically Signed)
--- NOTE | 2024-11-15 21:06 | ED.GENADULT ---
HPI - General Adult General Chief complaint: Dizziness/Vertigo Stated complaint: weakness/confusion Time Seen by Provider: 11/15/24 20:42 History of Present Illness HPI narrative: This 74-year-old male comes in with his stating that he has some episodes of vertigo. He had a cochlear implant done a bit more than a week ago. He is not reporting any pain. He has recently finished Keflex and a steroid. He is taking Tylenol if needed for pain. He states that he was driving and had rather sudden onset of vertigo type symptoms that have seemed to resolve. Related Data Home Medications ?Medication ?Instructions ?Recorded ?Confirmed aspirin 81 mg tablet,delayed 81 mg PO DAILY 08/01/22 08/05/22 release atorvastatin 40 mg tablet 40 mg PO QHS 08/01/22 08/05/22 chlorthalidone 25 mg tablet 25 mg PO DAILY 08/01/22 08/05/22 gabapentin 300 mg capsule 300 mg PO QHS 08/01/22 08/05/22 glimepiride 4 mg tablet (Amaryl) 8 mg PO DAILY 08/01/22 08/05/22 lisinopril 20 mg tablet 20 mg PO DAILY 08/01/22 08/05/22 metformin 1,000 mg tablet 1,000 mg PO BIDWMEAL 08/01/22 08/05/22 metoprolol tartrate 25 mg tablet 25 mg PO BID 08/01/22 08/05/22 nitroglycerin 0.4 mg sublingual 0.4 mg sublingual Q5M PRN chest 08/01/22 08/05/22 tablet (Nitrostat) pain omega 5-kxi-urh-fish oil 1,000 mg 1 cap PO DAILY 08/01/22 08/05/22 (120 mg-180 mg) capsule (Fish Oil) Previous Rx's ?Medication ?Instructions ?Recorded meclizine 25 mg tablet 25 mg PO QID #20 tabs 11/15/24 Allergies Allergy/AdvReac Type Severity Reaction Status Date / Time No Known Drug Allergies Allergy Verified 11/10/24 13:10 Review of Systems Status of ROS: Reports: 10 or more systems reviewed and unremarkable except as noted in History and below Narrative: Constitutional: No fevers, no weight gain or loss. Eyes: No discharge. No vision changes. HENT: No congestion, no sore throat, no ear pain. Cardiovascular: No chest pain, no palpitations. Respiratory: No shortness of breath, no wheezes, no cough. Gastrointestinal: No abdominal pain, no vomiting, no diarrhea. Genitourinary: No dysuria, no hematuria. Musculoskeletal: Normal range of motion. Skin: No rashes, no pruritis. Neurological: No sensory change, speech change. He reports some weakness but is able to get up and ambulate. He also has some episodes of vertigo that are short lived. Endo/Heme/Allergies: No bruising or bleeding. No polydipsia. Pysch: no suicidality, no anxiety, no insomnia. All other systems reviewed and are negative. [facility] Medical History Controlled diabetes mellitus with hyperglycemia, without long-term current use of insulin ?E11.65 - Type 2 diabetes mellitus with hyperglycemia (ICD-10) Nuclear senile cataract of both eyes ?H25.13 - Age-related nuclear cataract, bilateral (ICD-10) Hyperopia of both eyes ?H52.03 - Hypermetropia, bilateral (ICD-10) Blepharitis of both eyes ?H01.003 - Unspecified blepharitis right eye, unspecified eyelid (ICD-10) ?H01.006 - Unspecified blepharitis left eye, unspecified eyelid (ICD-10) Other intervertebral disc displacement, lumbar region ?M51.26 - Other intervertebral disc displacement, lumbar region (ICD-10) Tinnitus, unspecified ear ?H93.19 - Tinnitus, unspecified ear (ICD-10) Sensorineural hearing loss, bilateral ?H90.3 - Sensorineural hearing loss, bilateral (ICD-10) Benign neoplasm of colon, unspecified ?D12.6 - Benign neoplasm of colon, unspecified (ICD-10) Essential (primary) hypertension ?I10 - Essential (primary) hypertension (ICD-10) Acquired hyperlipoproteinemia ?E78.5 - Hyperlipidemia, unspecified (ICD-10) Type 2 diabetes mellitus without complications ?E11.9 - Type 2 diabetes mellitus without complications (ICD-10) Surgical History H/O coronary artery bypass surgery ?Z95.1 - Presence of aortocoronary bypass graft (ICD-10) H/O aortic valve replacement ?Z95.2 - Presence of prosthetic heart valve (ICD-10) Social History Smoking Status: Never smoker How often do you have a drink containing alcohol: never How often do you have six or more drinks on one occasion: Never AUDIT-C Alcohol total score: 0 Non-prescribed substance use: denies use Caffeine: No service: No Exam Narrative: Exam Narrative: Constitutional: Well-developed, well-nourished, no acute distress. HEENT: Normocephalic, atraumatic. Neck: Normal range of motion. Nontender. Supple. Heart: Regular. No murmurs. Normal rate. Intact distal pulses. Lungs: Clear to auscultation. No chest discomfort. No wheezes, rhonchi, or rales. Abdomen: Normal bowel sounds. Nontender. No rebound tenderness. Genitalia: Deferred. Back: No midline tenderness. Normal range of motion. Extremities: Normal range of motion. No injury. Skin: Intact. No rash. Warm. No erythema or pallor. Neurologic: No altered sensation. No weakness. Alert and oriented. Psychiatric: No suicidality. No anxiety or depression. No insomnia. Nursing notes and vitals signs are reviewed. Const: Vital Signs, click to edit/add: Vital Signs - 24 hr 11/15/24 20:44 Temperature 96.9 F L Pulse Rate [Pulse Oximeter] 65 Respiratory Rate 16 Blood Pressure [Ri ght Upper Arm] 152/94 H Pulse Oximetry 97 Oxygen Delivery Me thod Room Air Course Vital Signs Vital signs: Initial Vital Signs Temperature 96.9 F L 11/15/24 20:44 Temperature Source Temporal Artery Scan 11/15/24 20:44 Pulse Rate 65 11/15/24 20:44 Respiratory Rate 16 11/15/24 20:44 Blood Pressure 152/94 H 11/15/24 20:44 Blood Pressure Mean 113 H 11/15/24 20:44 Blood Pressure Position Sitting 11/15/24 20:44 Pulse Oximetry 97 11/15/24 20:44 Oxygen Delivery Method Room Air 11/15/24 20:44 Vital Signs Temperature 96.9 F L 11/15/24 20:44 Pulse Rate 65 11/15/24 20:44 Respiratory Rate 16 11/15/24 20:44 Blood Pressure 152/94 H 11/15/24 20:44 Pulse Oximetry 97 11/15/24 20:44 Oxygen Delivery Method Room Air 11/15/24 20:44 Temperature 96.9 F L 11/15/24 20:44 Pulse Rate 65 11/15/24 20:44 Respiratory Rate 16 11/15/24 20:44 Blood Pressure 152/94 H 11/15/24 20:44 Pulse Oximetry 97 11/15/24 20:44 Oxygen Delivery Method Room Air 11/15/24 20:44 Medical Decision Making MDM Narrative Medical decision making narrative: This patient comes in reporting some vertigo symptoms and other rather nonspecific complaints of not feeling right after having a left cochlear implant done about a week or more ago. He had some vertigo symptoms prior to arrival but these have now resolved. He states that he feels good now. I did check labs and imaging and these returned with reassuring results. He does have some fluid around the surgical site which can be expected. He does have an appointment with his surgeon tomorrow morning. He is okay to be discharged home. I did provide a prescription for meclizine. Lab Data Labs: Lab Results 11/15/24 Range/Units 21:26 WBC 7.69 (4.50-11.00) K/uL RBC 4.71 (4.30-5.90) m/uL Hgb 14.2 (13.5-17.5) gm/dL Hct 41.8 (37.0-53.0) % MCV 89 (80-100) fL MCH 30 (26-34) pg MCHC 34 (32-36) gm/dL RDW Coeff of Alicia 12.7 (11.5-15.5) % Plt Count 160 (140-440) K/uL Neut % (Auto) 54.5 (42.0-72.0) % Lymph % (Auto) 31.5 (20-44) % [place] % (Auto) 8.6 (0.0-11.0) % Eos % (Auto) 4.9 (0.0-7.0) % Baso % (Auto) 0.4 (0.0-3.0) % Neut # (Auto) 4.19 (1.7-7.0) K/uL Lymph # (Auto) 2.42 (0.90-2.90) K/uL [place] # (Auto) 0.70 (0.00-0.90) K/UL Eos # (Auto) 0.38 (0.00-0.50) K/uL Baso # (Auto) 0.03 (0.00-0.30) K/uL Abs Immat Gran (auto) 0.01 (0.00-0.30) K/uL Imm/Tot Granulo (auto) 0.1 % Sodium 137 (135-149) mmol/L Potassium 4.7 (3.6-5.1) mmol/L Chloride 103 (96-114) mmol/L Carbon Dioxide 26 (20-32) mmol/L Anion Gap 8 (7-15) mEq/L BUN 41 H (7-30) mg/dL Creatinine 1.6 H (0.5-1.5) mg/dL Estimated Creat Clear 41.19 Estimated GFR 45 ml/min Glucose 199 H (60-115) mg/dL Calcium 9.4 (8.4-10.6) mg/dL Imaging Data CT scan - head: Radiologist's impression: Portions of the examination are degraded by streak artifact. There are postsurgical changes from reported left cochlear implant placement with fluid and/or soft tissue noted in the mastoid air cells, middle ear, and surgical cavity. This is overall not well evaluated by imaging and if there is concern for acute surgical complication, ENT evaluation would be recommended. Otherwise, allowing for streak artifact, no acute intracranial process is appreciated. Discharge Plan Discharge Clinical Impression: Vertigo Patient Disposition: Home, Self-Care Condition: Stable Additional Instructions: Follow up with MD appointment tomorrow as scheduled. Use meclizine as needed and directed for symptomatic relief of vertigo symptoms. Return if worsening. Prescriptions: New meclizine 25 mg tablet 25 mg PO QID Qty: 20 0RF No Action aspirin 81 mg tablet,delayed release (DR/EC) 81 mg PO DAILY atorvastatin 40 mg tablet 40 mg PO QHS chlorthalidone 25 mg tablet 25 mg PO DAILY omega 4-pdh-cfg-fish oil [Fish Oil] 1,000 mg (120 mg-180 mg) capsule 1 cap PO DAILY gabapentin 300 mg capsule 300 mg PO QHS glimepiride [Amaryl] 4 mg tablet 8 mg PO DAILY lisinopril 20 mg tablet 20 mg PO DAILY metformin 1,000 mg tablet 1,000 mg PO BIDWMEAL metoprolol tartrate 25 mg tablet 25 mg PO BID nitroglycerin [Nitrostat] 0.4 mg tablet, sublingual 0.4 mg sublingual Q5M PRN (Reason: chest pain) Rx Instructions: do not exceed 3 doses per episode Follow Up/Referrals: Terry Corbett MD [Primary Care Provider] - Stand Alone Forms: [facility] Info Instructions
[2024-11-15 21:33] LABS: Basophils Absolute Auto 0.03 K/uL (0.00-0.30); Basophils Percent Auto 0.4 % (0.0-3.0); Eosinophils Absolute Auto 0.38 K/uL (0.00-0.50); Eosinophils Percent Auto 4.9 % (0.0-7.0); Hematocrit 41.8 % (37.0-53.0); Hemoglobin* 14.2 gm/dL (13.5-17.5); Immature Granulocytes Abs Auto 0.01 K/uL (0.00-0.30); Immature Granulocytes Pct Auto 0.1 %; Lymphocytes Absolute Auto 2.42 K/uL (0.90-2.90); Lymphocytes Percent Auto 31.5 % (20-44); Mean Corpuscular HGB Conc 34 gm/dL (32-36); Mean Corpuscular Hemoglobin 30 pg (26-34); Mean Corpuscular Volume 89 fL (80-100); Monocytes Percent Auto 8.6 % (0.0-11.0); Neutrophils Absolute Auto 4.19 K/uL (1.7-7.0); Neutrophils Percent Auto 54.5 % (42.0-72.0); Platelet Count* 160 K/uL (140-440); RDW Coefficient of Variation % 12.7 % (11.5-15.5); Red Blood Count 4.71 m/uL (4.30-5.90); White Blood Count* 7.69 K/uL (4.50-11.00)
[2024-11-15 21:34] LABS: Slide Review Reflex No
--- OUTSIDE RECORDS SUMMARY | 2024-11-15 21:36 | XMS_ITS | Clinical Summary ---
Author Organization [facility] Address [address] [place] [address] Care Team Providers Care Power Shovel Operator Name Role Phone Terry Corbett MD Primary Care Provider + Deo Garcia DPM Unavailable Mary Jane Valentino Unavailable [phone] Allergies No known active allergies Medications FISH OIL 1,000 MG CAP 1 tablet daily 0 09/05 01/05 008 Active aspirin (ECOTRIN) 81 mg enteric coated tablet Take 1 tablet by mouth once daily with a meal. 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 Sleep apnea 08/06/2007 01/22/2017 Encounters Date Type Department Care Team Description 11/15/2024 Travel 11/10/2024 Nurse Triage [facility] [address] [place] [address] Vasu Herrera MD Post-op; Headache 11/05/2024 10:14 AM CDT Anesthesia Event [facility] [address] [place] [address] Oscar Motley MD Perese, Deniz A, MD 11/05/2024 9:26 AM CDT - 11/05/2024 12:21 PM CDT Surgery [address] [address] Vasu Herrera MD LEFT INSERTION COCHLEAR IMPLANT 11/05/2024 7:42 AM CDT - 11/05/2024 2:32 PM CDT Hospital Encounter [address] [address] Vasu Herrera MD Sensorineural hearing loss, bilateral (Primary Dx) Discharge Disposition: Home Self Care 11/03/2024 Travel 10/26/2024 10:00 AM CDT Office Visit [facility] [address] [place] [address] Terry Corbett MD Preoperative Exam (11/05/24, cochlear implant, Dr. Herrera, [place]) 10/26/2024 Travel 10/24/2024 Travel 10/23/2024 Travel 10/20/2024 11:30 AM CDT Office Visit [facility] [address] [place] [address] Senia George AuD Hearing Aid (CI device selection) 10/20/2024 Travel 09/21/2024 10:30 AM CDT Office Visit [facility] [address] [place] [address] James Cortez MD Follow Up (Follow up yearly visit- Echo 09/14/24 ) 09/21/2024 Travel 09/19/2024 Refill [facility] [address] [place] [address] Terry Corbett MD Refill Request (Lisinopril, Glimepiride, Chlorthalidone) 09/14/2024 11:00 AM CDT Ancillary Procedure [facility] [address] [place] [address] 09/14/2024 10:45 AM CDT Orders Only [facility] [address] [place] [address] Lab, [place] [facility] 09/14/2024 Travel 09/10/2024 Travel 08/31/2024 Telephone [place] [address] [place] [address] James Cortez MD Lab (Lab orders needed) [...] on file Legal Sex Male 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 Gender Identity Not on file Sexual Orientation [...] Description 11/16/2024 10:00 AM CDT Office Visit [facility] [address] [place] [phone] Jodie Scales PA [address] [place] [address] 12/03/2024 10:00 AM CDT Office Visit [facility] [address] [place] [phone] Linda Haines, AuD [address] [place] [address] 12/03/2024 10:30 AM CDT Office Visit [facility] [address] [place] [phone] Linda Haines, AuD [address] [place] [address] 12/23/2024 9:35 AM CDT Office Visit [facility] [address] [place] [address] VoTerry gustafson MD [address] [place] [address] Health Maintenance Due Date Last Done Comments [...] history exists Medical Devices Implanted Type Area Surveying Technician Device Identifier Shelf Expiration Date Model / Serial / Lot Anw Hh [id number] Implanted:Qty: 1 on 07/11/2016 by Jaguar Hendrix MD at [facility] Explanted:at [facility] (Quantity not on file) N/A: Aortic Valve [employer] 11/01/2019 [id number] / [id number] / Elctrd Cochlear Nucleus Plus Profile W/Slim Modiolar [id number] - [id number] Implanted:Qty: 1 on 11/05/2024 by Vasu Herrera MD at [facility] Left: Ear [employer] 06/18/2026 [id number] / [id number] / Procedures Procedure Name Priority Date/Time Associated Diagnosis Comments GLUCOSE METER Timed 11/05/2024 12:36 PM CDT SUPRAGLOTTIC-LMA Routine 11/05/2024 10:38 AM CDT INSERTION COCHLEAR IMPLANT Tier 4 11/05/2024 9:54 AM CDT Sensorineural hearing loss (SNHL) of both ears Case Notes 150 MIN TFCochlear AmericasMICROSCOPE10/21: Order rec'd from office and submitted for quote. [facility]10/22: Externals ordered to be delivered to clinic. [facility] Special Needs HT 5'8 WT 97.8kg, [...] Hypertension COLONOSCOPY SCREENING Routine 09/11/2021 9:28 AM HANDKERCHIEF FOLDER History of colon polyps from Last 3 Months or Most Recently Relevant to Health Maintenance Results * (ABNORMAL) GLUCOSE METER (11/05/2024 12:36 PM CDT) Only the most recent of2 resultswithin the time period is included. GLUCOSE METER 185(H) 65 - 100 mg/dL 11/05/2024 12:41 PM CDT [facility] Blood BLOOD SPECIMEN / Unknown 11/05/2024 12:36 PM CDT 11/05/2024 12:41 PM CDT us Vasu Herrera MD CHEMISTRY Final Resul t [facility] SENDOUT INTERNAL ZIP [id number] [address] [place] [address] * HCHG MASK PR5 (11/05/2024 10:38 AM CDT) Narrative James Hood TIRE WRAPPER - 11/05/2024 10:38 AM CDT James Hood [...] Terry Corbett MD HEMATOLOGY Final Re sult [facility] [address] [place] [address], [facility] [address] [place] [address] * (ABNORMAL) BASIC METABOLIC PANEL (10/26/2024 11:11 AM CDT) Only the most recent of2 resultswithin the time period is included. GLUCOSE 215(H) 65 - 99 mg/dL [facility] Comment: Fasting reference interval For [...] MD CHEMISTRY Final Re sult [facility] [address] [place] [address], [facility] [address] [place] [address] * ECHO TTE COMPLETE W CONTRAST (09/14/2024 [...] BSA: 2.11 m Weight: 98.00 kg Tech: [facility] Referring MD: BLACK LUCIA Site: [facility] Reading Location: Mobile-OP Patient Location: Outpatient. [...] msec Contrast documentation: 2 ml diluted Definity, [facility]# [id number] was administered peripherally to enhance visualization of all left ventricular segments. . This study was interpreted by an [facility] accredited facility. Final (Updated) Procedure Note Esdras Zamorano MD - 09/17/2024 ECHOCARDIOGRAM FRANCISCO KAUFMAN : 1950 74 years Study Date: 09/14/2024 11:11:19 AM Gender: M BP: 110/54 mmHg Height: 173.00 cm BSA: 2.11 m Weight: 98.00 kg Tech: [facility] Referring MD: BLACK LUCIA Site: [facility] Reading Location: Mobile-OP Patient Location: Outpatient. [...] msec Contrast documentation: 2 ml diluted Definity, [facility]# [id number] wasadministered peripherally to enhance visualization of all left ventricularsegments. . This study was interpreted by an [facility] accredited facility. Final (Updated) us Black [...] LDL-C. Naveed SS et al. RUI. 2013;310(19): 9367-6935 (http://education.Volusion/faq/NYP713) CHOL/HDLC RATIO 4.4 <5.0 (calc) [facility] NON HDL CHOLESTEROL 100 <130 mg/dL (calc) [facility] Comment: For patients with diabetes plus 1 major ASCVD risk factor, treating to a non-HDL-C goal of <100 mg/dL (LDL-C of <70 mg/dL) is considered a therapeutic option. Blood BLOOD SPECIMEN / Unknown 09/14/2024 10:40 AM CDT 09/14/2024 10:40 AM CDT James Cortez MD CHEMISTRY Final Result [facility] [address] [place] [address], [facility] [address] [place] [address] * COLONOSCOPY (09/11/2021 9:18 AM HANDKERCHIEF FOLDER) 09/11/2021 9:18 AM HANDKERCHIEF FOLDER Narrative Transcriptions Naveed Patterson MD - 09/11/2021 [...] adequate candidate for conscious sedation. The [id number] was passed through the anus and advanced [...] 9:18 AM Procedure Code(s): --- Professional --- 31784, Colonoscopy, flexible; with removalof tumor(s), polyp(s), or other lesion(s) bysnare technique Diagnosis Code(s): --- Professional --- Z86.010, Personal history of colonicpolyps K63.5, Polyp of colon K57.30, Diverticulosis of large intestine without perforation or abscess withoutbleeding CPT copyright 2020 [employer]. All rights reserved. The codes documented in this report are preliminary and upon ice carver reviewmay be revised to meet current compliance requirements. Scope In: 10:01:15 AM Scope Withdrawal Time 0 hours 8 minutes 44 seconds Scope Out: 10:25:36 AM us Naveed Patterson MD PROCEDURE ORD Final Res ult from Last 3 Months or Most Recently Relevant to Health Maintenance Insurance MEDICARE PB ONLY [facility] MEDICARE PART B HB ONLY MEDICARE PART A HB ONLY Advance Directives * Full Code (Latest Code Status on File) Date Activated Date Inactivated Comments 07/11/2016 11:32 AM 07/17/2016 6:06 PM * Full Code Date Activated Date Inactivated Comments 07/11/2016 6:00 AM 07/11/2016 11:31 AM * Full Code Date Activated Date Inactivated Comments 06/24/2016 9:10 AM 06/24/2016 4:49 PM Care Teams Power Shovel Operator Relationship Specialty Start Date End Date Votel, Terry Leone MD [address] [place] [address] PCP - General 09/17/07 Deo Garcia DPM [address] [place] [address] PODIATRY Podiatry 07/11/11 Mary Jane Valentino AuD [address] [facility] [place] [address] Audiology 12/26/11
[2024-11-15 21:47] LABS: Chloride* 103 mmol/L (96-114); Potassium* 4.7 mmol/L (3.6-5.1); Sodium* 137 mmol/L (135-149)
[2024-11-15 21:50] LABS: Anion Gap 8 mEq/L (7-15); Blood Urea Nitrogen* 41 mg/dL (7-30); Calcium* 9.4 mg/dL (8.4-10.6); Carbon Dioxide* 26 mmol/L (20-32); Creatinine* 1.6 mg/dL (0.5-1.5); Est. Creatinine Clearance* 41.19; Estimated Glomerular Filt Rate 45 ml/min; Glucose* 199 mg/dL (60-115)
== END 2024-11-15 22:52 | disposition home or self-care (01) ==
PROVIDERS: Emergency Provider Emergency Medicine Emergency Medical Services; PCP Family Medicine
DX: R42 Dizziness and giddiness (principal)
CPT/HCPCS: 36415; 70450; 80048; 85025; 99284